=== PATIENT | male | born 1945 | race Hispanic/Latino ===

== ENCOUNTER 2019-06-23 15:24 | Emergency (ER) | payer OTHER ==
--- NOTE | 2019-06-23 15:59 | RAD ---
THREE VIEWS LEFT SHOULDER: 06/23/19 COMPARISON: None. HISTORY: Fall, trauma, pain. 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 There is an anterior subcoracoid dislocation of the left gle nohumeral joint. IMPRESSION: Anterior subcoracoid dislocation of the left glenohumeral joint. Post reduction imaging advised. POS: [facility]
--- NOTE | 2019-06-23 16:03 | RAD ---
XR Tib Fib Lt Leg 2 View History: Fall Comparison: None. Findings: Evaluation the knee is limited due to overlying bandage. The tibia and fibula appear to be intact. No displaced fracture. Impression: No displaced fracture appreciated.
[2019-06-23] MEDS ORDERED: Lidocaine 1% w/Epinephrine 1:100K 20 ML VIAL ONE (16:22)
[2019-06-23] MEDS ORDERED: Adacel (T-DAP) 0.5 ML SYRINGE ONE (16:38)
[2019-06-23] MEDS ORDERED: Fentanyl 100 MCG/2 ML VIAL ONE (16:38)
--- NOTE | 2019-06-23 17:53 | RAD ---
XR Shoulder Lt 3 View STANDARD History: Postreduction Comparison: Radiograph same day Findings: Improved alignment of the subcoracoid dislocation. Impression: Satisfactory postreduction alignment.
== END 2019-06-23 18:22 | disposition home or self-care (01) ==
LOC: ERS 15:24
DX: S43.015A Anterior dislocation of left humerus, initial encounter (principal); W17.89XA Other fall from one level to another, initial encounter
CPT/HCPCS: 12002; 23650; 90471; 90715; 96374; 99152; J3010